=== PATIENT | male | born 1980 | race Caucasian/White ===

== ENCOUNTER 2017-01-01 14:41 | Emergency (ER) | payer SELFPAY ==
[2017-01-01 14:49] VITALS: BP 152/87
--- NOTE | 2017-01-01 16:02 | ERNOTE ---
Upper Extremity HPI - Narrative Date of Service: 01/01/17 - General Extremities Pain Location: arm: right Time Seen by Provider: 01/01/17 15:40 Source: patient, RN notes reviewed Exam Limitations: no limitations - Immun/Allergies/Home Medications Immunizations: IMMUNIZATION HX Immunizations Up to Date Yes Allergies/Adverse Reactions: Allergies Allergy/AdvReac Type Severity Reaction Status Date / Time No Known Allergies Allergy Unverified 01/01/17 14:49 Home Medications: HOME MEDICATIONS NK [No Home Medication] 01/01/17 [Last Taken Unknown] - History of Present Illness Narrative: 36 y/o male ambulatory to the ED for right arm pain that began while bowling 2 nights ago. He had his arm extending and was ready to release the ball when he felt a "pop" in the volar surface of the arm. He had been having mild pain, but it became much worse when he lifted a heavy bag of trash at work today. He states he is not having any pain currently. He has been taking Tylenol and ibuprofen for pain. Date (Duration): 12/30/16 Severity: mild Method of Injury: Reports: sports injury Associated Symptoms: Denies: tingling, weakness, numbness distally, loss of power (rt arm) Other Injuries: Reports: none Prior Treament: Denies: similar symptoms before Review of Systems - Review of Systems Constitutional: Absent: recent illness, fever, chills, malaise EYE: Present: no symptoms reported ENT: Present: no symptoms reported Respiratory: Present: no symptoms reported Cardiology: Absent: chest pain, syncope Gastrointestinal/Abdominal: Present: no symptoms reported Genitourinary: Present: no symptoms reported Musculoskeletal: Present: muscle pain. Absent: neck pain, joint pain, joint swelling Skin: Absent: rash, lesions, lumps Neurological: Absent: weakness, numbness, tingling Endocrine: Present: no symptoms reported Hematologic/Lymphatic: Present: no symptoms reported Psych: Present: no symptoms reported - Patient's Past Medical History Patient History - Medical: No pertinent hx Patient History - Cardiac/Respiratory: Other Patient History - Cancer: No Hx of Cancer Patient History - Surgical Procedures: No surgical history Patient History - Other: None - Social History Living Situations: home Psych History: No pertinent hx Smoking Status: Current every day smoker Alcohol Use: occasionally Drug Use: marijuana, meth - Immunizations Immunizations Up to Date: Yes Physical Exam - Physical Exam General Appearance: Present: wd/wn, alert, no apparent distress, other - Disheveled, appears older than reported age Respiratory: Present: no respiratory distress, no accessory muscle use Cardiovascular/Chest: Present: normal peripheral pulses Extremity Exam: Present: normal range of motion, other - right forearm, volar surface tender from mid forearm to distal third of humerus - no deformity or ecchymosis. Absent: joint redness, joint swelling, extremity edema Neurological Exam: Present: alert, oriented, normal mood/affect, no motor/ sensory deficits Skin Exam: Present: normal color, warm/dry ED Progress - Vital Signs Patient's Vital Signs:: I have reviewed the patient's vital signs. Vital Signs: Vital Signs 01/01/17 14:46 Temperature 37.0 C Pulse Rate 91 Respiratory 16 Rate Blood Pressure 152/87 O2 Sat by Pulse 100 Oximetry - Progress/Reassessment Chief Complaint: Upper Extremity Injury/Problem Progress:: Unchanged Departure Clinical Impression: Muscle strain - Departure Disposition: Home self-care Condition: Good Instructions: Muscle Strain, [id number], Form - Excuse from Work, School, or Physical Activity Additional Instructions: Ice or heat Avoid lifting, pushing, pulling with right arm Tylenol and/or ibuprofen for pain Follow up with your doctor if no improvement in 1 week
--- OUTSIDE RECORDS SUMMARY | 2017-01-01 16:12 | XMS REPORT | Continuity of Care Document ---
:1980 Author Organization [facility] ([facility]) Address [address] [place] [address] Phone [phone] Care Team Providers Name Role Phone Unavailable Primary Care Provider Unavailable Source Comments This disclosure is being made pursuant to the Care Everywhere program, applicable federal and state laws, and may not contain all informaitonavailable regarding this patient.[facility] ([facility]) Active Allergies and Adverse Reactions Not on File Current Medications Not on file Active Problems Not on file Social History Tobacco Use Types Packs/Day Years Used Date Never Assessed Plan of Care Health Maintenance Due Date Last Done Comments Hepatitis B Vaccine (1 of 3 - Primary Series) 1980 Tdap Vaccine 1989 Lipid Disorder Screening 1996 MMR Vaccine 1996 Td Vaccine 1996 Influenza Vaccine: Seasonal (#1) 05/13/2016 Results from Last 3 Months Not on file
== END 2017-01-01 16:00 | disposition home or self-care (01) ==
LOC: ER 14:41
DX: S46.911A Strain of unspecified muscle, fascia and tendon at shoulder and upper arm level, right arm, initial encounter (principal); X58.XXXA Exposure to other specified factors, initial encounter; Y93.54 Activity, bowling; Y92.39 Other specified sports and athletic area as the place of occurrence of the external cause; Y99.8 Other external cause status; Z72.0 Tobacco use